=== PATIENT | female | born 1960 | race Caucasian/White ===

== ENCOUNTER 2019-12-03 08:01 | Outpatient (CLI) | payer SELFPAY ==
--- NOTE | 2019-12-03 08:15 | MM_ITS ---
WS: [id number] BILATERAL DIGITAL SCREENING MAMMOGRAPHY WITH CAD CLINICAL INFORMATION: SCREENING HISTORY: Screening mammogram. No current complaints. COMPARISON: TECHNIQUE: Bilateral CC and MLO views. FINDINGS: Scattered fibroglandular densities bilaterally. 5 mm small asymmetric density mid LEFT breast more co nspicuous compared to the prior examinations. RECOMMEND SPOT COMPRESSION VIEWS AND ULTRASOUND LEFT BR EAST FOR FURTHER EVALUATION. Normal right breast. MM/[id number] IMPRESSION: BI-RADS: 0-Incomplete: Need additional imaging evaluation FOLLOW UP: Additional imaging
== END 2019-12-03 08:02 | disposition home or self-care (01) ==
LOC: RADSHAW 08:05
PROVIDERS: PCP Family Medicine; Visit Provider Family Medicine
DX: Z12.31 Encounter for screening mammogram for malignant neoplasm of breast (principal); N64.89 Other specified disorders of breast
CPT/HCPCS: 77067

== ENCOUNTER 2020-01-09 10:08 | Outpatient (CLI) | payer SELFPAY ==
--- NOTE | 2020-01-09 10:12 | US_ITS ---
WS: [id number] LEFT DIGITAL MAMMOGRAPHY WITH CAD CLINICAL INFORMATION: ABNORMAL MAMMOGRAM COMPARISON: December 03, 2019 TECHNIQUE: 3 views of the left breast were obtained. FINDINGS: Scattered fibroglandular densities of the left breast. Again seen is the 5 mm small asymmetric densit y mid left breast. This is unchanged since the prior examination. Ultrasound is pending. ULTRASOUND BREAST LEFT TECHNIQUE: Ultrasound left breast focused area of concern. CLINICAL INFORMATION: ABNORMAL MAMMOGRAM COMPARISON: None. FINDINGS: Ultrasound left breast performed at the 12:00 position. A few tiny hypoechoic cystic appearing lesions are identified the largest measuring 3 mm compatible w ith simple cysts and fibrocystic disease. No suspicious lesions. No lesions to target for biopsy. US/US breast LT limited* [id number] IMPRESSION: BI-RADS: 2-Benign FOLLOW UP: 1 Year Follow-up Recommend return to annual screening mammography.
== END 2020-01-09 10:09 | disposition home or self-care (01) ==
LOC: RADSHAW 10:09
PROVIDERS: PCP Family Medicine; Visit Provider Family Medicine
DX: R92.8 Other abnormal and inconclusive findings on diagnostic imaging of breast (principal); N64.9 Disorder of breast, unspecified
CPT/HCPCS: 76642; 77065

== ENCOUNTER 2021-05-21 11:43 | Outpatient (CLI) | payer OTHER, SELFPAY ==
--- NOTE | 2021-05-21 11:50 | MM_ITS ---
WS: [id number] BILATERAL SCREENING DIGITAL MAMMOGRAM WITH CAD HISTORY: SCREENING COMPARISON: 12/03/2019 and 10/01/2018 Bilateral CC and MLO views submitted. Computer aided detection analyzed. Breast composition: There are scattered areas of fibroglandular density. No suspicious masses, microc alcifications or architectural distortion. Decrease in size of the well-circumscribed nodule seen on the prior study central to the nipple. Nodule now measures 5 mm. Noted to be a cyst on a prior ultras ound. MM/[id number] IMPRESSION: BI-RADS: 2-Benign FOLLOW UP: 1 Year Follow-up
== END 2021-05-21 11:44 | disposition home or self-care (01) ==
PROVIDERS: PCP Family Medicine; Visit Provider Family Medicine
DX: Z12.31 Encounter for screening mammogram for malignant neoplasm of breast (principal)
CPT/HCPCS: 77067

== ENCOUNTER 2021-09-27 00:41 | Emergency (ER) | payer OTHER, SELFPAY ==
[2021-09-27 00:44] VITALS: BP 147/84; PULSE 78; RESP 18; TEMP 36.9; O2SAT 96; BMI 43.7
[2021-09-27 00:51] VITALS: BP 174/84; PULSE 74; O2SAT 99
[2021-09-27 01:00] VITALS: BP 156/81; PULSE 71; O2SAT 96
[2021-09-27] MEDS: silver nitrate applicator 1 EACH TOPICAL (01:54)
[2021-09-27 02:30] VITALS: BP 151/74; PULSE 71; O2SAT 96
--- NOTE | 2021-09-27 16:57 | ED_ITS ---
HPI - Extremity Problem General: Chief complaint: Extremity Problem,Nontraumatic Stated complaint: VARICOSE VEIN ON ANKLE Time Seen by Provider: 09/27/21 00:46 Source: patient and EMS History of Present Illness: 61 year old lady who presents after waking up in bed, bleeding from her right ankle. There was a significant amount of blood loss at home. She shows me pictures of a clot that is decently large probably 200 milliliters. Bleeding is now controlled. She has varicose veins, and has ruptured varicosity in the past, and believes that's what happened. She admits to shaving using a razor yesterday. She is not anti-coagulated. MD Complaint: other Onset (ago): minute(s) Pain Consistency: constant Location: right and lower extremity Quality: other Radiation: other Relieving factors: other Exacerbating factors: other Associated symptoms: Reports other; Deny chest pain or fever(s) Review of Systems Const: Denies: fever(s) Card: Denies: chest pain Resp: Denies: dyspnea GI: Denies: vomiting Skin/Breast: Reports: new lesions Physical Exam Const: COMMON NORMALS: no acute distress GENERAL APPEARANCE: cooperative; not ill appearing NUTRITIONAL APPEARANCE: overweight ORIENTATION/CONSCIOUSNESS: Yes awake, Yes oriented to person, Yes oriented to place and Yes oriented to time HENMT: COMMON NORMALS: normocephalic HEAD & SCALP: normocephalic Eye: COMMON NORMALS: Equal, round and reactive pupils present and EOMs intact bilaterally PUPIL: Yes Equal, round and reactive pupils present Neck/C-Spine: GENERAL: Yes trachea midline Chest: CHEST: Yes Symmetrical chest wall rise Resp: COMMON NORMALS: normal respiratory effort, No use of accessory muscles and clear to auscultation bilaterally AUSCULTATION: clear to auscultation bilaterally Cardio: COMMON NORMALS: regular rate and regular rhythm RATE: regular rate RHYTHM: regular rhythm Extremity: NARRATIVE EXTREMITY EXAM: Punctate wound just proximal to the right ankle over varicosity. Bleeding is controlled. No redness or swelling. Neuro: BERNIE COMA SCALE: document GCS findings [place] coma scale eye opening: Spontaneous Bernie coma scale verbal response: Orientated Bernie coma scale motor response: Obey commands [place] coma scale total score: 15 SENSORIUM/ORIENTATION: Yes oriented to person, Yes oriented to place and Yes oriented to time Course Vital Signs: Vital signs: Vital Signs Temperature 98.5 F 09/27/21 00:44 Pulse Rate 71 09/27/21 02:30 Respiratory Rate 18 09/27/21 00:44 Blood Pressure 151/74 09/27/21 02:30 Pulse Oximetry 96 09/27/21 02:30 MDM - Extremity (Nontraumatic) Medical Decision Making Ruptured varicosity is first cauterized with silver nitrate, then derma blake used to coat the wound to prevent re rupture. No evidence of clinically significant blood loss on her exam. She will be discharged home. Discharge Plan Discharge Patient Disposition: Home Clinical Impression: Ruptured varicose vein Condition: Stable Discharge Orders: Discharge ED (Routine); Ordered 09/27/21 Ordered By: David Richard Referrals: Oliver Salas MD [Primary Care Provider] - 1-3 days Patient Instructions: Varicose Veins Activity Restrictions/Additional Instructions: Return for repeated episodes of bleeding, redness, streaking, swelling, any other concerns. Coding Level of Care Code ED Psychosocial Rehabilitation Counselor for José Mgiuel Thomas
== END 2021-09-27 02:48 | disposition home or self-care (01) ==
PROVIDERS: Emergency Provider Emergency Medicine; PCP Family Medicine
DX: I83.891 Varicose veins of right lower extremity with other complications (principal)
CPT/HCPCS: 99283

== ENCOUNTER → 2022-01-12 08:54 | Outpatient (BNVA) | payer OTHER, SELFPAY | PROVIDERS: PCP Family Medicine; Visit Provider Family Medicine | DX: E03.9 Hypothyroidism, unspecified (principal); R73.9 Hyperglycemia, unspecified; J30.2 Other seasonal allergic rhinitis | CPT/HCPCS: 80053; 80061; 83036; 84443 ==

== ENCOUNTER 2022-05-24 10:04 | Outpatient (CLI) | payer OTHER, SELFPAY ==
--- NOTE | 2022-05-24 10:14 | MM_ITS ---
WS: [id number] BILATERAL SCREENING DIGITAL TOMOSYNTHESIS MAMMOGRAM WITH CAD HISTORY: SCREENING COMPARISON: 1 05/21/2021, 12/03/2019 Bilateral CC and MLO views with tomosynthesis and synthetic mammography submitted. Computer aided det ection analyzed. Breast composition: There are scattered areas of fibroglandular density. No suspicious masses, microc alcifications or architectural distortion. MM/[place] [id number] IMPRESSION: BI-RADS: 1-Negative FOLLOW UP: 1 Year Follow-up
== END 2022-05-24 10:05 | disposition home or self-care (01) ==
LOC: RAD 10:05
PROVIDERS: PCP Family Medicine; Visit Provider Family Medicine
DX: Z12.31 Encounter for screening mammogram for malignant neoplasm of breast (principal)
CPT/HCPCS: 77063; 77067

== ENCOUNTER → 2022-08-26 15:42 | Outpatient (BNVA) | payer SELFPAY | PROVIDERS: PCP Family Medicine; Visit Provider Family Medicine | DX: E03.9 Hypothyroidism, unspecified (principal) | CPT/HCPCS: 84443 ==

== ENCOUNTER → 2022-12-28 07:20 | Outpatient (BNVA) | payer SELFPAY | PROVIDERS: PCP Family Medicine; Visit Provider Family Medicine | DX: R30.0 Dysuria (principal); N39.0 Urinary tract infection, site not specified | CPT/HCPCS: 81000; 87086 ==

== ENCOUNTER → 2023-01-03 13:12 | Outpatient (BNVA) | payer MEDICARE, OTHER, SELFPAY | PROVIDERS: PCP Family Medicine; Visit Provider Family Medicine | DX: R73.9 Hyperglycemia, unspecified (principal); E03.9 Hypothyroidism, unspecified; Z00.00 Encounter for general adult medical examination without abnormal findings; E66.9 Obesity, unspecified | CPT/HCPCS: 80053; 80061; 83036; 84443 ==

== ENCOUNTER 2023-01-17 14:14 | Outpatient (CLI) | payer MEDICARE, OTHER, SELFPAY ==
--- NOTE | 2023-01-17 15:00 | XR_ITS ---
WS: [id number] DEXA (DUAL ENERGY X-RAY ABSORPTIOMETRY) Bone mineral density was performed using a [employer] machine. HISTORY: screening COMPARISON: None available. Lumbar spine BMD (L1-L4): 1.155 g/cm2 T score: -0.2 Z score: 0.2 Total hip BMD: Left: 0.857 g/cm2. T score: -1.2 Z score: -0.8 Right: 0.858 g/cm2. T score: -1.2 Z score: -0.8 10 year probability of a major osteoporotic fracture is 7% IMPRESSION: OSTEOPENIA based upon the WHO classification for females.
== END 2023-01-17 14:15 | disposition home or self-care (01) ==
LOC: RAD 14:15
PROVIDERS: PCP Family Medicine; Visit Provider Family Medicine
DX: Z00.00 Encounter for general adult medical examination without abnormal findings (principal); Z13.820 Encounter for screening for osteoporosis; M85.80 Other specified disorders of bone density and structure, unspecified site
CPT/HCPCS: 77080

== ENCOUNTER 2023-06-13 09:45 | Outpatient (CLI) | payer MEDICARE, OTHER, SELFPAY ==
--- NOTE | 2023-06-13 09:51 | MM_ITS ---
WS: [id number] BILATERAL SCREENING DIGITAL TOMOSYNTHESIS MAMMOGRAM WITH CAD HISTORY: SCREENING COMPARISON: 05/24/2022, 05/21/2021 Bilateral CC and MLO views with tomosynthesis and synthetic mammography submitted. Computer aided det ection analyzed. Breast composition: There are scattered areas of fibroglandular density. No suspicious masses, microc alcifications or architectural distortion. IMPRESSION: MM/[place] [id number] BI-RADS: 1-Negative FOLLOW UP: 1 Year Follow-up
== END 2023-06-13 09:46 | disposition home or self-care (01) ==
LOC: RAD 09:46
PROVIDERS: PCP Family Medicine; Visit Provider Family Medicine
DX: Z12.31 Encounter for screening mammogram for malignant neoplasm of breast (principal)
CPT/HCPCS: 77063; 77067

== ENCOUNTER → 2024-01-03 09:00 | Outpatient (BNVA) | payer MEDICARE, OTHER, SELFPAY | PROVIDERS: PCP Family Medicine; Visit Provider Family Medicine | DX: E11.9 Type 2 diabetes mellitus without complications (principal); E03.9 Hypothyroidism, unspecified; G47.33 Obstructive sleep apnea (adult) (pediatric) | CPT/HCPCS: 80053; 80061; 83036; 84443 ==

== ENCOUNTER 2024-03-06 09:20 | Outpatient (CLI) | payer MEDICARE, OTHER, SELFPAY ==
--- NOTE | 2024-03-06 09:23 | MR_ITS ---
WS: [id number] MRI LEFT ANKLE WITHOUT CONTRAST. COMPARISON: None Multiplanar, multisequence imaging is performed without contrast. Marked loss of the normal plantar arch of the foot. Pes planus deformity with flattening of the arch. There is also slight reversal of the normal arch of the foot. Extensive chronic subchondral cystic c hanges in the anterior talar process and in the subtalar portion of the calcaneus. Small erosions in subchondral cystic changes in the talar bones with osteophyte formation. Narrowing of the talonavicul ar joint with the bridging dorsal osteophyte. All of these changes of are chronic over time. There is mild medial deviation of the distal talus. Mild narrowing of the tibiotalar joint. No edema within the distal tibia. Small amount of edema in a well-corticated loose body at the distal fibular tip. No cortical osteochondral defects along the mary ar dome. Normal Achilles tendon. Large enthesopathy along the plantar aponeurosis. There is also thickening an d intermediate signal of the plantar fascia. Peroneal tendons are intact. Small amount of fluid and mild atrophy of the central calcaneofibular li gament. No full-thickness tear. Flexor hallucis longus and the flexor digitorum longus are normal caliber and signal. Posterior tibial tendon with intermediate signal and increase in size adjacent to the medial malleolu s. Just distal to the medial malleolus there is absence of the tendon consistent with a complete tear . The adjacent spring ligament has abnormal signal also. Not all bands of the spring ligament are julio césar ntified but there is at least a partial tear of the ligament along the lateral talus. No widening of the syndesmosis ligament. Small caliber but intact anterior talofibular ligament. Norm al anterior inferior tibiofibular ligament. Intermediate signal with striations of the deltoid ligame nt. No tear identified. Loss of the normal signal in sinus Tarsi. Space is narrow with increased sign al. Cervical ligament is not well identified or visualized. MR/MR ankle LT wo con* [id number] IMPRESSION: 1. Loss of the normal plantar arch of the foot with medial deviation of the di stal talus. 2. Complete tear of the posterior tibial tendon distal to the medial malleolus . Partial tear of the adjacent spring ligament. 3. Loss of the normal arch of the foot with advanced degenerative chronic appe aring subchondral cystic changes in the hindfoot and midfoot. 4. Sinus Tarsi syndrome. 5. Large enthesopathy at the plantar aponeurosis with plantar fasciitis.
== END 2024-03-06 09:21 | disposition home or self-care (01) ==
LOC: RAD 09:21
PROVIDERS: PCP Family Medicine; Visit Provider Orthopaedic Surgery
DX: M76.822 Posterior tibial tendinitis, left leg (principal); M77.52 Other enthesopathy of left foot and ankle; M72.2 Plantar fascial fibromatosis; S93.492A Sprain of other ligament of left ankle, initial encounter; X58.XXXA Exposure to other specified factors, initial encounter
CPT/HCPCS: 73721

== ENCOUNTER 2024-04-29 11:37 | Emergency (ER) | payer MEDICARE, OTHER, SELFPAY ==
[2024-04-29] VITALS (7 sets, daily range): BP systolic 119–170; BP diastolic 65–93; PULSE 89–107; RESP 16–18; TEMP 36.7; O2SAT 93–98; BMI 40.3
--- NOTE | 2024-04-29 12:07 | XRR_ITS ---
PROCEDURE INFORMATION: Exam: XR Abdomen Exam date and time: 04/29/2024 12:28 PM Age: 64 years old Clinical indication: Prior surgery; Surgery date: 6+ months; Surgery type: Gb, hemmoroidectomy; Patient HX: Constipation; Recent surgery-non weight bearing; Hemmroids TECHNIQUE: Imaging protocol: Radiologic exam of the abdomen. Views: Frontal supine view of the abdomen. 1 View. COMPARISON: No relevant prior studies available. FINDINGS: Gastrointestinal tract: Nonobstructive bowel gas pattern. Prominent small bowel loops with prominent valvular conniventes of the central abdomen measuring up to 2.9 cm. There is stool noted throughout the colon. Organs: Status post cholecystectomy. Bones/joints: Unremarkable. XR/XR KUB [id number] IMPRESSION: Findings which may suggest slow motility/ileus versus early small bowel obstruction.
--- NOTE | 2024-04-29 12:47 | W.ED.ABDPA2 ---
HPI - Abdominal Pain General: Chief Complaint: Abdominal Pain Stated Complaint: constipation Time Seen by Provider: 04/29/24 11:58 History of Present Illness: Patient is a 64-year-old female. She states she had a surgery this past Tuesday on her foot. She states that she has been taking hydrocodone this week after the surgery. She states it is healing well. She notes that she was taking a stool softener. She states that she was having trouble going to the bathroom and then she had a hemorrhoid come up. Patient states she has had problems with hemorrhoids in the past and has had surgery on them a few years ago. She states that hemorrhoid is causing pain and whenever she tries to go she will get a little bit out but then the pain is pretty significant with a hemorrhoid. She has just generalized abdominal discomfort. No nausea or vomiting. Related Data Home Medications Medication Instructions Recorded Confirmed aspirin 81 mg tablet,delayed 81 mg PO BID 04/29/24 04/29/24 release levothyroxine 125 mcg tablet 125 mcg PO DAILY 04/29/24 04/29/24 Previous Rx's Medication Instructions Recorded C-pap with mask and supplies #1 ea 06/02/23 diclofenac sodium 75 mg 75 mg PO BID #180 tabs 06/02/23 tablet,delayed release betamethasone valerate 0.1 % 1 applic topical BID PRN itching 01/03/24 topical cream #45 grams Allergies Allergy/AdvReac Type Severity Reaction Status Date / Time No Known Allergies Allergy Verified 01/12/22 07:21 [facility] ED PFSH: Medical History Obstructive sleep apnea Seasonal allergies Hyperglycemia Hypothyroid Social History Smoking and tobacco/nicotine status: unknown if used tobacco/nicotine Physical Exam Const: COMMON NORMALS: no acute distress, patient oriented x3 and alert GENERAL APPEARANCE: cooperative HENMT: COMMON NORMALS: normocephalic and atraumatic HEAD & SCALP: normocephalic and atraumatic Eye: COMMON NORMALS: Equal, round and reactive pupils present and EOMs intact bilaterally PUPIL: Yes Equal, round and reactive pupils present Neck/C-Spine: COMMON NORMALS: full ROM and supple Chest: COMMONS NORMALS: normal inspection of the chest Resp: COMMON NORMALS: normal respiratory effort and clear to auscultation bilaterally AUSCULTATION: clear to auscultation bilaterally Cardio: COMMON NORMALS: regular rate and regular rhythm RATE: regular rate RHYTHM: regular rhythm GI: COMMON NORMALS: Normal to inspection, nondistended, normoactive bowel sounds present and non-tender : COMMON NORMALS: Yes no CVA tenderness BLADDER/KIDNEY EXAM: Yes no CVA tenderness Back/Pelvis: COMMON NORMALS: no CVA tenderness and thoracic and lumbar spine normal to inspection Extremity: COMMON NORMALS: normal to inspection, full ROM and no pedal edema Neuro: COMMON NORMALS: patient oriented x3 and no focal motor deficits SENSORIUM/ORIENTATION: Yes alert Psych: COMMON NORMALS: cooperative Skin: COMMON NORMALS: no rashes or lesions noted GENERAL SKIN EXAM: no rashes or lesions noted Course Vital Signs: Vital signs: Vital Signs Temperature 98.0 F 04/29/24 11:50 Pulse Rate 95 04/29/24 16:00 Respiratory Rate 16 04/29/24 16:00 Blood Pressure 119/93 04/29/24 16:00 Pulse Oximetry 97 04/29/24 16:00 Oxygen Delivery Me thod Room Air 04/29/24 16:00 MDM - Abdominal Pain Medical Decision Making Patient was given Reglan, magnesium citrate and Dulcolax. Patient KUB showed possible ileus versus early small bowel obstruction. CT abdomen pelvis with contrast was ordered. Before CT patient had a very large bowel movement. Patient already was feeling substantially better at that point. Patient went head CT scan. On arrival back to room she had a second large bowel movement. Patient having no abdominal pain or discomfort at this point. CT shows contrast all the way through to the ileum. No obstruction but they do note there could be mild ileus. This makes sense based on patient's pain medication use. Have advised MiraLAX twice a day to try to clear out her bowels. Have advised follow-up with primary care. Return if any worsening symptoms. Lab Data 04/29/24 12:51 04/29/24 12:51 Labs/Radiology: Radiology Impressions KUB X-Ray 04/29/24 12:07 IMPRESSION: Findings which may suggest slow motility/ileus versus early small bowel obstruction. Abdomen/Pelvis CT 04/29/24 14:47 IMPRESSION: 1. Previous cholecystectomy. 2. Small bilateral renal cysts. 3. Mild left and sigmoid colon diverticulosis without diverticulitis. 4. Mild prominence of proximal small bowel in relation to more distal small bowel though with oral contrast seen to the level of the terminal ileum at the ileocecal valve which would exclude a complete or high-grade small bowel obstruction. This may be related to slow transit/ileus versus partial low-grade small bowel obstruction. Fluid content within small and large bowel could be associated with ileus or hypersecretory state. Interval follow-up suggested. 5. Mild hazy appearance of the mesentery in the perirectal fat region could be associated with mild inflammation/edema or proctitis. COMMENTS: Consistent with the [employer]'s Incidental Findings Committee white paper ([employer] [place] [employer]iol 2018): Any incidental renal lesion less than 1 cm or classified as too small to characterize, or any incidental cystic renal lesion characterized as simple-appearing, is likely benign. No follow-up imaging is recommended for these lesions per consensus recommendations based on imaging criteria. Laboratory Results WBC 13.40 10^3/uL (3.29-11.43) H 04/29/24 12:51 RBC 5.20 10^6/uL (3.85-5.65) 04/29/24 12:51 Hgb 15.50 g/dL (11.27-16.99) 04/29/24 12:51 Hct 47.3 % (36-47) H 04/29/24 12:51 MCV 91.0 fl (85-98) 04/29/24 12:51 MCH 29.8 pg (27-33) 04/29/24 12:51 MCHC 32.8 g/dL (30-55) 04/29/24 12:51 RDW 13.0 % (12.1-15.1) 04/29/24 12:51 Plt Count 352 10^3/cmm (157-399) 04/29/24 12:51 MPV 9.3 fL (7.4-10.4) 04/29/24 12:51 Neut % (Auto) 80.0 % 04/29/24 12:51 Lymph % (Auto) 13.8 % 04/29/24 12:51 Cache % (Auto) 5.1 % 04/29/24 12:51 Eos % (Auto) 0.4 % 04/29/24 12:51 Baso % (Auto) 0.4 % 04/29/24 12:51 Neut # (Auto) 10.72 10^3/uL (1.8-7.7) H 04/29/24 12:51 Lymph # (Auto) 1.9 10^3/uL (0.8-4.8) 04/29/24 12:51 Cache # (Auto) 0.7 10^3/uL (0.2-0.9) 04/29/24 12:51 Eos # (Auto) 0.1 10^3/uL (0.0-0.8) 04/29/24 12:51 Baso # (Auto) 0.1 10^3/uL (0.0-0.1) 04/29/24 12:51 Nucleated RBC % (auto) 0 % 04/29/24 12:51 Nucleated RBCs # 0.0 /100WBC 04/29/24 12:51 Sodium 136 mmol/L (136-145) 04/29/24 12:51 Potassium 3.9 mmol/L (3.5-5.1) 04/29/24 12:51 Chloride 100 mmol/L (98-107) 04/29/24 12:51 Carbon Dioxide 22 mmol/L (22-29) 04/29/24 12:51 Anion Gap 17.9 (5-19) 04/29/24 12:51 BUN 13 mg/dL (8-23) 04/29/24 12:51 Creatinine 0.6 mg/dL (0.5-0.9) 04/29/24 12:51 GFR Calculation 100.0 mL/min (90-130) 04/29/24 12:51 Glucose 110 mg/dL (65-115) 04/29/24 12:51 Calculated Osmolality 283 mOsm/kg (285-295) L 04/29/24 12:51 Calcium 9.0 mg/dL (8.5-10.5) 04/29/24 12:51 All radiology interpretation(s) finalized by discharge Discharge Plan Discharge Patient Disposition: Home Clinical Impression: Acute constipation Condition: Stable Prescriptions: No Action betamethasone valerate 0.1 % cream 1 applic topical BID PRN (Reason: itching) Qty: 45 3RF (DME) C-pap with mask and supplies See Rx Instructions .Route .MEDSUPPLY Qty: 1 0RF Rx Instructions: use current settings. diclofenac sodium 75 mg tablet,delayed release (DR/EC) 75 mg PO BID Qty: 180 11RF aspirin [Aspir-81] 81 mg Tablet,Delayed Release (Dr/Ec) 81 mg PO BID levothyroxine 125 mcg tablet 125 mcg PO DAILY Discharge Orders: Discharge ED (Routine); Ordered 04/29/24 Ordered By: Nils Nichole Referrals: Oliver Salas MD [Primary Care Provider] - Discharge Diet: Advance as tolerated Discharge Activity: Resume usual activity Patient Instructions: Constipation (ED), Opioid Safety, Pain Management Coding Level of Care Code ED Gauge Inspector for José Miguel Thomas
--- NOTE | 2024-04-29 13:00 | PC.NURSE ---
this nurse assumed pt care at 1300 from CASSANDRA Alfonso.
[2024-04-29] MEDS: sodium chloride 0.9% 1,000 ML 999 ML IV (13:03)
[2024-04-29] MEDS: metoclopramide 5 mg/mL SDV 2 mL 10 MG IVP (13:03)
[2024-04-29] MEDS: magnesium citrate Btl 296 mL 150 ML PO (13:03)
[2024-04-29] MEDS: bisacodyl 5 mg Tablet 10 MG PO (13:03)
[2024-04-29 13:29] LABS: Basophils # 0.1 10^3/uL (0.0-0.1); Basophils % 0.4 %; Eosinophils # 0.1 10^3/uL (0.0-0.8); Eosinophils % 0.4 %; Hematocrit 47.3 % (36-47); Lymphocytes # 1.9 10^3/uL (0.8-4.8); Lymphocytes % 13.8 %; Mean Corpuscular HGB Conc 32.8 g/dL (30-55); Mean Corpuscular Hemoglobin 29.8 pg (27-33); Mean Platelet Volume 9.3 fL (7.4-10.4); Monocytes # 0.7 10^3/uL (0.2-0.9); Monocytes % 5.1 %; Neutrophils # 10.72 10^3/uL (1.8-7.7); Nucleated Red Blood Cells % 0 %; Platelet Count 352 10^3/cmm (157-399)
[2024-04-29 13:45] LABS: Anion Gap 17.9 (5-19); Blood Urea Nitrogen 13 mg/dL (8-23); Carbon Dioxide 22 mmol/L (22-29); Chloride 100 mmol/L (98-107); Creatinine Clr Calc Pharmacy 88.3867; Glucose 110 mg/dL (65-115); Osmolality Calculated 283 mOsm/kg (285-295); Potassium 3.9 mmol/L (3.5-5.1); Sodium 136 mmol/L (136-145)
--- NOTE | 2024-04-29 14:47 | CTR_ITS ---
PROCEDURE INFORMATION: Exam: CT Abdomen And Pelvis With Contrast Exam date and time: 04/29/2024 4:31 PM Age: 64 years old Clinical indication: Constipation; Additional info: Constipation one week, xray concern for sbo TECHNIQUE: Imaging protocol: Computed tomography of the abdomen and pelvis with contrast. Radiation optimization: All CT scans at this facility use at least one of these dose optimization techniques: automated exposure control; mA and/or kV adjustment per patient size (includes targeted exams where dose is matched to clinical indication); or iterative reconstruction. Contrast material: OMNI 350; Contrast volume: 100 ml; Contrast route: INTRAVENOUS (IV); COMPARISON: CR XR KUB [id number] 04/29/2024 12:28 PM RADIATION DOSE METRICS: Total DLP (mGy-cm): 1209 FINDINGS: Lungs: No significant infiltrate or effusion is seen in the visualized lung bases. Liver: Normal. No mass. Gallbladder and biliary ducts: Previous cholecystectomy. No significant biliary ductal dilatation. Pancreas: Normal. No ductal dilation. Spleen: Normal. No splenomegaly. Adrenal glands: Normal. No mass. Kidneys and ureters: Small rounded hypodense foci within the cortex of both kidneys with fluid density with Hounsfield measurements within the 13 mm focus within the right kidney and 15 mm focus within the left kidney. Findings suggest renal cysts. Kidneys appear unremarkable otherwise. No obstructive uropathy or perinephric stranding. Stomach and bowel: Oral contrast is seen within the stomach and scattered oral contrast density is seen within the small bowel including terminal ileum at the ileocecal junction. Mild prominence of duodenal and jejunal small bowel in relation to ileal small bowel otherwise though with demonstration of oral contrast to the ileal cecal level. Fluid content otherwise within small bowel and component of fluid content or liquid stool content in the colon. Mild left and sigmoid colon diverticulosis without findings of diverticulitis. Appendix: The appendix is not seen. No secondary signs of appendicitis. Intraperitoneal space: No free fluid or ascites. No free air. Mild hazy appearance of the mesentery in the perirectal fat region. Vasculature: Unremarkable caliber of the abdominal aorta without aneurysmal dilatation. Major vascular structures appear patent. Note is made of retroaortic left renal vein. Lymph nodes: Unremarkable. No enlarged lymph nodes. Urinary bladder: Urinary bladder appears adequately distended and without significant focal abnormality. Reproductive: Unremarkable as visualized. Bones/joints: Mild degenerative disc disease lumbosacral junction. Bone windows show no acute osseous abnormality. Soft tissues: Tiny umbilical fat hernia. CT/CT abdomen pelvis w con* [id number] IMPRESSION: 1. Previous cholecystectomy. 2. Small bilateral renal cysts. 3. Mild left and sigmoid colon diverticulosis without diverticulitis. 4. Mild prominence of proximal small bowel in relation to more distal small bowel though with oral contrast seen to the level of the terminal ileum at the ileocecal valve which would exclude a complete or high-grade small bowel obstruction. This may be related to slow transit/ileus versus partial low-grade small bowel obstruction. Fluid content within small and large bowel could be associated with ileus or hypersecretory state. Interval follow-up suggested. 5. Mild hazy appearance of the mesentery in the perirectal fat region could be associated with mild inflammation/edema or proctitis. COMMENTS: Consistent with the [employer]'s Incidental Findings Committee white paper ([employer] Am [place] [employer]iol 2018): Any incidental renal lesion less than 1 cm or classified as too small to characterize, or any incidental cystic renal lesion characterized as simple-appearing, is likely benign. No follow-up imaging is recommended for these lesions per consensus recommendations based on imaging criteria.
[2024-04-29] MEDS: iohexol 350 mg/mL 500 mL Btl (per mL) IV (16:37)
[2024-04-29] MEDS: iohexol 350 mg/mL 500 mL Btl (per mL) PO (16:38)
== END 2024-04-29 18:10 | disposition home or self-care (01) ==
PROVIDERS: Emergency Provider Emergency Medicine; PCP Family Medicine
DX: K59.00 Constipation, unspecified (principal); Z79.82 Long term (current) use of aspirin
CPT/HCPCS: 12345; 74018; 74177; 80048; 85025; 96374; 99285; 99291; J2765; J7030

== ENCOUNTER 2024-06-20 15:20 | Outpatient (RCR) | payer MEDICARE, OTHER, SELFPAY | END 2024-07-02 23:59 | disposition home or self-care (01) | LOC: SPT 15:20 | PROVIDERS: Visit Provider Physician Assistant | DX: Z98.890 Other specified postprocedural states (principal) | CPT/HCPCS: 97110; 97161 ==

== ENCOUNTER 2024-07-03 05:00 | Outpatient (RCR) | payer MEDICARE, OTHER, SELFPAY | END 2024-08-01 23:59 | disposition home or self-care (01) | LOC: SPT 05:00 | PROVIDERS: Visit Provider Physician Assistant | DX: Z98.890 Other specified postprocedural states (principal) | CPT/HCPCS: 97110 ==

== ENCOUNTER 2024-07-12 13:03 | Outpatient (CLI) | payer MEDICARE, OTHER, SELFPAY ==
--- NOTE | 2024-07-12 13:08 | MM_ITS ---
WS: [id number] BILATERAL SCREENING DIGITAL TOMOSYNTHESIS MAMMOGRAM WITH CAD HISTORY: SCREENING COMPARISON: 06/13/2023 and 05/24/2022 Bilateral CC and MLO views with tomosynthesis and synthetic mammography submitted. Computer aided detection analyzed. Breast composition: There are scattered areas of fibroglandular density. No suspicious masses, microcalcifications or architectural distortion. MM/MM scr BI tomosynthesis [id number] IMPRESSION: BI-RADS: 1 - Negative. FOLLOW UP: 1 Year Follow-up
== END 2024-07-12 13:04 | disposition home or self-care (01) ==
PROVIDERS: PCP Family Medicine; Visit Provider Family Medicine
DX: Z12.31 Encounter for screening mammogram for malignant neoplasm of breast (principal); R92.323 Mammographic fibroglandular density, bilateral breasts
CPT/HCPCS: 77063; 77067

== ENCOUNTER 2024-08-02 05:00 | Outpatient (RCR) | payer MEDICARE, OTHER, SELFPAY | END 2024-08-21 13:16 | disposition home or self-care (01) | LOC: SPT 05:00 | PROVIDERS: PCP Family Medicine; Visit Provider Physician Assistant | DX: Z98.890 Other specified postprocedural states (principal) | CPT/HCPCS: 97110 ==

== ENCOUNTER → 2025-01-08 09:28 | Outpatient (BNVA) | payer MEDICARE, OTHER, SELFPAY | PROVIDERS: PCP Family Medicine; Visit Provider Family Medicine | DX: Z00.00 Encounter for general adult medical examination without abnormal findings (principal); E03.9 Hypothyroidism, unspecified; R53.83 Other fatigue; M19.90 Unspecified osteoarthritis, unspecified site; R73.9 Hyperglycemia, unspecified; G47.33 Obstructive sleep apnea (adult) (pediatric); I10 Essential (primary) hypertension | CPT/HCPCS: 80053; 80061; 82306; 82607; 83036; 83880; 84443; 84550; 85025; 86140; 86160; 86162; 86235; 86255; 86376; 86431 ==

== ENCOUNTER → 2025-01-23 13:42 | Outpatient (BNVA) | payer MEDICARE, OTHER, SELFPAY | PROVIDERS: PCP Family Medicine; Visit Provider Family Medicine | DX: R30.0 Dysuria (principal) | CPT/HCPCS: 81000 ==

== ENCOUNTER → 2025-02-07 10:16 | Outpatient (BNVA) | payer MEDICARE, OTHER, SELFPAY | PROVIDERS: PCP Family Medicine; Referring Provider Family Medicine; Visit Provider Internal Medicine Rheumatology | DX: M54.50 Low back pain, unspecified (principal); M79.89 Other specified soft tissue disorders; M25.50 Pain in unspecified joint; R53.83 Other fatigue; M51.369 Other intervertebral disc degeneration, lumbar region without mention of lumbar back pain or lower extremity pain; M47.817 Spondylosis without myelopathy or radiculopathy, lumbosacral region; S63.8X1A Sprain of other part of right wrist and hand, initial encounter; X58.XXXA Exposure to other specified factors, initial encounter; M50.30 Other cervical disc degeneration, unspecified cervical region; M13.0 Polyarthritis, unspecified; G89.29 Other chronic pain; Z79.899 Other long term (current) drug therapy; Z71.85 Encounter for immunization safety counseling; M65.4 Radial styloid tenosynovitis [de Quervain] | CPT/HCPCS: 36415; 72040; 72100; 73130; 83520; 84439; 84443; 85651; 86140; 86200; 99204 ==

== ENCOUNTER 2025-04-03 10:03 | Outpatient (CLI) | payer MEDICARE, OTHER, SELFPAY ==
[2025-04-03 11:05] LABS: Hematocrit 43.6 % (36-47); Hemoglobin 14.10 g/dL (11.27-16.99); Mean Corpuscular HGB Conc 32.3 g/dL (30-55); Mean Corpuscular Hemoglobin 29.9 pg (27-33); Mean Corpuscular Volume 92.6 fl (85-98); Nucleated Red Blood Cells % 0 %; Platelet Count 290 10^3/cmm (157-399); Red Blood Count 4.71 10^6/uL (3.85-5.65); White Blood Count 6.68 10^3/uL (3.29-11.43)
[2025-04-03 11:29] LABS: Alanine Aminotransferase 15 U/L (0-33); Albumin Level 4.2 g/dL (3.5-5.2); Alkaline Phosphatase 70 U/L (35-105); Aspartate Amino Transferase 17 U/L (0-32); Globulin 2.8 g/dL (1.3-4.6); Total Protein 7.0 g/dL (6.6-8.7)
== END 2025-04-03 10:04 | disposition home or self-care (01) ==
LOC: LAB 10:11
PROVIDERS: PCP Family Medicine; Visit Provider Internal Medicine Rheumatology
DX: Z79.899 Other long term (current) drug therapy (principal)
CPT/HCPCS: 36415; 80076; 82565; 85025; 85651; 86140